=== PATIENT | female | born 2000 | race Two or more races ===

== ENCOUNTER → 2024-11-17 | Outpatient (CLI) | payer BC, SELFPAY ==
[2024-11-17 16:15] LABS: Collection Type, Urine Clean Catch
[2024-11-17 17:40] LABS: Bilirubin,Urine Negative (Negative); Blood,Urine 1+ (Negative); Clarity,Urine Clear (Clear/Hazy); Color,Urine Lt-Yellow (Lt Yel-Yel); Glucose, Urine Negative (Negative); Ketones,Urine Negative (Negative); Leukocyte Esterase,Urine Positive (Negative); Nitrite,Urine Negative (Negative); Protein,Urine Negative (Neg - Trace); RBC,Urine 5 /hpf (0-3); Specific Gravity,Urine 1.026 (1.001-1.035); Squamous Epithelial Cell,Urine 9 /hpf (0-5); Urobilinogen,Urine Negative mg/dL (0.0-1.0); WBC,Urine 5 /hpf (0-5)
== END | disposition home or self-care (01) ==
LOC: SLDO 15:36
PROVIDERS: PCP Student in an Organized Health Care Education/Training Program; Referring Provider Student in an Organized Health Care Education/Training Program; Visit Provider Student in an Organized Health Care Education/Training Program
DX: N39.0 Urinary tract infection, site not specified (principal)
CPT/HCPCS: 81001; 87086

== ENCOUNTER 2024-11-24 23:10 | Emergency (ER) | payer BC, SELFPAY ==
[2024-11-24 23:10] VITALS: BMI 21.1
[2024-11-24 23:25] VITALS: BP 137/78; PULSE 145; RESP 22; TEMP 36.8; O2SAT 97
[2024-11-24 23:38] VITALS: BP 129/88; PULSE 116; RESP 16; O2SAT 97
[2024-11-24] MEDS: DEXAMETHASONE SOD PHOS INJ 10 MG/ML VIAL PO (23:44)
[2024-11-24] MEDS: predniSONE 20 MG TABLET 40 MG PO (23:44)
[2024-11-24] MEDS: BUDESONIDE RT 0.5 MG/2 ML NEBU INH (23:47)
[2024-11-24] MEDS: IPRATROPIUM RT 0.5 MG/ 2.5 ML NEBU 1 MG INH (23:47)
[2024-11-24] MEDS: LEVALBUTEROL RT 1.25 MG/0.5 ML NEBU 5 MG INH (23:47)
[2024-11-24 23:53] VITALS: PULSE 133; RESP 20; O2SAT 100
[2024-11-25 00:38] LABS: Strep A Rapid Negative (Negative)
[2024-11-25 01:29] VITALS: BP 136/74; PULSE 134; RESP 17; TEMP 37.5; O2SAT 99
--- NOTE | 2024-11-25 02:14 | PC.NURSE ---
PT STATES SHE IS FEELING BETTER AFTER BREATHING TREATMENT
--- NOTE | 2024-11-25 02:34 | EKG_ITS ---
[facility] Test Date: 2024-11-25 Pat Name: CHAUNCEY COKER Department: Room: - Gender: Female Director Of Distribution: : 2000 Requested By: Betito Bar Order Number: [id number] Reading MD: Betito Bar Measurements Intervals [place] Rate: 127 P: 70 DE: 155 QRS: 19 QRSD: 97 T: 73 QT: 323 QTc: 471 Interpretive Statements SINUS TACHYCARDIA NONSPECIFIC ST & T-WAVE ABNORMALITY ABNORMAL RHYTHM ECG No previous ECG available for comparison /store/S0/[id number]/[id number].pdf
[2024-11-25 02:52] VITALS: BP 133/74; PULSE 128; RESP 18; TEMP 36.8; O2SAT 98
[2024-11-25 04:11] VITALS: BP 118/73; PULSE 123; RESP 18; O2SAT 97
--- NOTE | 2024-11-25 05:16 | PD.ASTHM ---
ED Asthma RME/HPI General Chief Complaint: Shortness of Breath/Dyspnea Stated Complaint: ASTHMA ATTACK Time Seen by Provider: 11/24/24 23:31 Arrival date/time: 11/24/24 23:10 24F with history of asthma presents to ED with 2 days of cough and wheezing. Patient was given amoxicillin from clinic. Limitations: no limitations Related Data Previous Rx's ?Medication ?Instructions ?Recorded ferrous sulfate 325 mg (65 mg 325 mg PO BID #60 tabs 05/26/24 iron) tablet,delayed release ibuprofen 600 mg tablet 600 mg PO Q6H PRN pain #30 tabs 05/26/24 prednisone 20 mg tablet 20 mg PO QDAY 4 days #4 tabs 11/25/24 Allergies Allergy/AdvReac Type Severity Reaction Status Date / Time erythromycin base Allergy Severe RASH Verified 05/24/24 17:46 Penicillins Allergy Severe HIVES Verified 05/24/24 17:46 sulfisoxazole Allergy Severe RASH Verified 05/24/24 17:46 tretinoin Allergy Unknown Verified 05/24/24 17:46 ALBUTEROL ORAL LIQUID Allergy Severe DIFF Uncoded 05/24/24 17:46 BREATHING Review of Systems Review of Systems Systems Reviewed: All systems reviewed, normal except as documented Constitutional Constitutional: Reports system reviewed and no additional complaints, except as documented, Denies fever(s) and Denies headache(s) ENT Ears, Nose, Mouth, and Throat: Denies disequilibrium and Denies headache(s) Cardiovascular Cardiovascular: Reports system reviewed and no additional complaints, except as documented, Denies chest pain and Denies dyspnea Respiratory Respiratory: Reports system reviewed and no additional complaints, except as documented, Reports as per HPI, Reports cough, Denies dyspnea and Reports wheezing Gastrointestinal Gastrointestinal: Reports system reviewed and no additional complaints, except as documented, Denies abdominal pain, Denies nausea and Denies vomiting Neurologic Neurologic: Reports system reviewed and no additional complaints, except as documented, Denies confusion, Denies disequilibrium and Denies headache(s) Psychiatric Psychiatric: Denies confusion Allergic/Immunologic Allergic/Immunologic: Reports wheezing Past Medical History Past Medical History NEUROLOGIC: Negative Neurological Disorders CARDIAC: Negative Cardiac Disorders or Congestive Heart Failure RESPIRATORY: Positive Respiratory Disorders and Asthma; Negative Chronic Obstructive Pulmonary Disease (COPD) GASTROINTESTINAL: Negative Gastrointestinal Disorders GENITOURINARY: Negative Genitourinary Disorders or Renal Disease REPRODUCTIVE: Positive Previous Pregnancies (x1) MUSCULOSKELETAL: Negative Musculoskeletal Disorders ENDOCRINE: Negative Endocrine Disorders, Diabetes Mellitus Type 1 or Diabetes Mellitus Type 2 HEMATOLOGIC: Negative Blood Disorders OTHER HISTORY: Negative Hospitalization, Autoimmune Disease, Down Syndrome, Developmental Delay, Falls, Blood Transfusions, Blood Transfusion Reaction, Anesthesia Reactions, Organ Transplant, Chicken Pox, Measles, Mumps, Rubella (Turkish Measles) or Cancer Family History FAMILY HISTORY: Negative Family Cardiac Disorders Surgical History SURGICAL: Negative Organ Transplant Social History SMOKING STATUS: Never smoker SECOND HAND EXPOSURE: No ED Exam General Limitations: Present no limitations General appearance: Present alert and in no apparent distress Head Head exam: Present atraumatic Eye Eye exam: Present normal appearance, PERRL and EOMI ENT ENT exam: Present normal exam, normal oropharynx and mucous membranes moist Neck Neck exam: Present normal inspection, full ROM and trachea midline Chest Chest inspection: Present normal inspection and symmetric chest wall rise Respiratory Respiratory exam: Present wheezes Cardiovascular Cardiovascular exam: Present regular rate, normal rhythm and normal heart sounds Abdominal Exam Abdominal exam: Present soft and normal bowel sounds Extremities Exam Extremities exam: Present normal inspection and full ROM Back Exam Back exam: Present normal inspection and full ROM Neurological Exam Neurological exam: Present alert, oriented X3 and CN II-XII intact Psychiatric Psychiatric exam: Present normal affect and normal mood Skin Skin exam: Present warm, dry, intact and normal color Course Quality Measures none Orders Category Date Time Status Bedside Influenza A&B Antigen Test NOW Care 11/24/24 23:32 Completed EKG (ED ONLY) *Do not use* NOW Care 11/25/24 02:34 Completed EKG (ED Only) Stat Exams 11/25/24 02:34 Draft Strep A Rapid Stat Lab 11/24/24 23:38 Completed Budesonide Rt [Pulmicort Rt Karen] Med 11/24/24 23:32 Discontinued 0.5 mg INH X1 ONE Dexamethasone Inj [Decadron Inj] Med 11/24/24 23:32 Discontinued 10 mg PO X1 ONE Ipratropium Colver Rt Karen [Atrovent Rt Karen] Med 11/24/24 23:32 Discontinued 1 mg INH X1 ONE Levalbuterol Rt [Xopenex Rt Karen] Med 11/24/24 23:32 Discontinued 5 mg INH X1 ONE Sodium Chloride Rt Karen 0.9% [NS Rt Karen 0.9%] Med 11/24/24 23:32 Discontinued 3 ml INH PRN PRN predniSONE Med 11/24/24 23:32 Discontinued 40 mg PO X1 ONE Vital Signs Vital signs: Vital Signs Temperature 98.3 F 11/24/24 23:25 Pulse Rate 145 H 11/24/24 23:25 Respiratory Rate 22 H 11/24/24 23:25 Blood Pressure 137/78 H 11/24/24 23:25 Pulse Oximetry (%) 97 11/24/24 23:25 Oxygen Delivery Method Room Air 11/24/24 23:25 Asthma MDM Narrative MDM Narrative:: 24F with history of asthma presents to ED with 2 days of cough and wheezing. Patient was given amoxicillin from clinic. Physical exam reveals diffuse wheezing in lungs. ENT clear. atient is afebrile, calm, and alert. Swabs neg. EKG is sinus tach of 127. Likely viral URI causing asthma exacerbation. Meds relieved symptoms. Patient data External records reviewed:: [facility] previous records Clinical information provided by:: patient Social determinants that could affect healthcare access:: none Patient has the following chronic illnesses:: asthma How is presenting disease/condition affected by chronic disease/condition?: exacerbated by Evaluation data The following diagnostics were reviewed and interpreted by me:: lab results and EKG tracing(s) Lab and/or radiology exams considered but not ordered:: ordered Interpretation Summary: above Medications / Prescriptions Medications or Prescriptions considered but not ordered:: ordered Medication administrations:: Medication Administration History Discontinued Medications Budesonide (Budesonide Rt 0.5 Mg/2 Ml Nebu) 0.5 mg INH X1 ONE Stop: 11/24/24 23:33 Last Admin: 11/24/24 23:47 Dose: 0.5 mg Documented By: SC Dexamethasone Sodium Phosphate (Dexamethasone Sod Phos Inj 10 Mg/Ml Vial) 10 mg PO X1 ONE Stop: 11/24/24 23:33 Last Admin: 11/24/24 23:44 Dose: 10 mg Documented By: AC Ipratropium Colver (Ipratropium Rt 0.5 Mg/ 2.5 Ml Nebu) 1 mg INH X1 ONE Stop: 11/24/24 23:33 Last Admin: 11/24/24 23:47 Dose: 1 mg Documented By: SC Levalbuterol HCl (Levalbuterol Rt 1.25 Mg/0.5 Ml Nebu) 5 mg INH X1 ONE Stop: 11/24/24 23:33 Last Admin: 11/24/24 23:47 Dose: 5 mg Documented By: SC Prednisone (Prednisone 20 Mg Tablet) 40 mg PO X1 ONE Stop: 11/24/24 23:33 Last Admin: 11/24/24 23:44 Dose: 40 mg Documented By: AC Sodium Chloride (Sodium Chloride Rt Karen 0.9% 3 Ml Nebu) 3 ml INH PRN PRN PRN Reason: SOLN Stop: 12/24/24 23:31 Consultations Consultation(s) initiated? (list below): No Diagnosis Differential diagnosis asthma: Acute exacerbation, Status asthmaticus, Acute asthmatic bronchitis, PE, Pneumonia, COPD exacerbation, Pulmonary edema systolic, Pulmonary edema dystolic, ARDS, Pneumothorax, Foreign body in trachea and other (URI) Most likely diagnosis given after review of the tests above:: URI and asthma exacerbation Admission Indicated Admission indicated?: not indicated Admission Request Was there a request for admission?: No Disposition Plan Disposition Plan: Discharge Discharge Attestation Discharge Attestation: The patient and all family members were given an opportunity to ask questions and understood the discharge instructions. Discharge instructions specifically effects, indications for sooner follow up or return to the emergency department, and the expected course of current diagnosis. Patient condition: Stable Discharge Plan Plan Patient Disposition: HOME (Self Care) Disposition Comment: Stable Prescriptions/Referrals Prescriptions/Med Rec: New prednisone 20 mg tablet 20 mg PO QDAY 4 Days Qty: 4 0RF No Action ibuprofen 600 mg tablet 600 mg PO Q6H PRN (Reason: pain) Qty: 30 0RF ferrous sulfate 325 mg (65 mg iron) tablet,delayed release (DR/EC) 325 mg PO BID Qty: 60 1RF Referrals: Patricio Ortiz MD [Primary Care Provider] - In 1 week Problem List Clinical Impression: Asthma with exacerbation, URI (upper respiratory infection) Patient/Caregiver Discharge Instructions Education Materials: ED URI, Viral, No Abx (Adult) Additional Instructions: Please follow-up with PCP within 24-48 hours and return immediately if symptoms worsen. Ibuprofen/Tylenol can be used simultaneously for greater fever/pain control. Print Language: Spanish Stand Alone Forms: Patient Portal Info Letter PA/FACILITY DESIGNER Supervising Physician RAYMOND/FACILITY DESIGNER Supervising Physician: Dr. Peterson
== END 2024-11-25 04:11 | disposition home or self-care (01) ==
PROVIDERS: Physician Assistant; Emergency Provider Emergency Medicine; PCP Family Medicine
DX: J45.901 Unspecified asthma with (acute) exacerbation (principal); J06.9 Acute upper respiratory infection, unspecified; R00.0 Tachycardia, unspecified
CPT/HCPCS: 87400; 87651; 93005; 94644; 99283; J1100; J7512

== ENCOUNTER → 2025-06-09 | Outpatient (CLI) | payer BC, SELFPAY | END | disposition home or self-care (01) | PROVIDERS: PCP Family Medicine; Referring Provider Family Medicine; Visit Provider Family Medicine | DX: N39.0 Urinary tract infection, site not specified (principal) | CPT/HCPCS: 87077; 87086; 87186 ==